=== PATIENT | male | born 1990 | race Caucasian/White ===

== ENCOUNTER 2017-10-24 08:17 | Emergency (ER) | payer MEDICAID ==
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
[2017-10-24] MEDS ORDERED: PROPARACAINE 0.5% 15 ML OPHT DROP ONE (08:27)
[2017-10-24] MEDS ORDERED: IBUPROFEN 800 MG TAB PO ONE (08:38)
[2017-10-24] MEDS ORDERED: HYDROCODONE/APAP 5/325 TAB PO ONE (08:42)
[2017-10-24] MEDS ORDERED: PROPARACAINE 0.5% 15 ML OPHT DROP EACHEYE ONE (08:46)
[2017-10-24 09:07] VITALS: BP 140/94
== END 2017-10-24 09:06 | disposition home or self-care (01) ==
DX: T20.10XA Burn of first degree of head, face, and neck, unspecified site, initial encounter (principal); X19.XXXA Contact with other heat and hot substances, initial encounter; Y93.G3 Activity, cooking and baking; Y92.9 Unspecified place or not applicable; Y99.9 Unspecified external cause status